=== PATIENT | male | born 1975 | race Caucasian/White ===

== ENCOUNTER 2024-12-01 17:07 | Emergency (ER) | payer OTHER ==
[~2024-12-01] VITALS: Ht 182.9 cm; Wt 131.8 kg
[2024-12-01 17:25] VITALS: TEMP 98.9
[2024-12-01 17:30] VITALS: BP 122/79; PULSE 105; RESP 18; O2SAT 97
[2024-12-01] MEDS: BACITRACIN 28 GM OINTMENT TP ONE (17:44)
[2024-12-01] MEDS: PROPARACAINE HCL 0.5% 15 ML OPHTHALMIC SOLUTION OS ONE (17:44)
[2024-12-01] MEDS: FLUORESCEIN SODIUM 1 MG STRIP OS ONE (17:45)
[2024-12-01] MEDS: AMOX TR/POT CLAV 875 MG/125 MG TABLET PO ONE (17:45)
[2024-12-01] MEDS: ACETAMINOPHEN 500 MG TABLET PO ONE (17:45)
[2024-12-01] MEDS: PERTUSS(ACELL),DIPH,TET/PF 0.5 ML SYRINGE [ADULT] IM. ONE (17:45)
[2024-12-01] MEDS ORDERED: IBUP-1492 PO (19:43)
[2024-12-01] MEDS ORDERED: ACET-3385 PO (19:43)
[2024-12-01] MEDS ORDERED: OFLO5DRO49 OS (19:43)
[2024-12-01] MEDS: OFLOXACIN 0.3% 5 ML OPHTHALMIC SOLUTION OS ONE (19:52)
== END 2024-12-01 19:55 | disposition home or self-care (01) ==
LOC: EMS 17:07
DX: S02.2XXA Fracture of nasal bones, initial encounter for closed fracture (principal); S05.02XA Injury of conjunctiva and corneal abrasion without foreign body, left eye, initial encounter; I10 Essential (primary) hypertension; E78.00 Pure hypercholesterolemia, unspecified; F32.A Depression, unspecified; F12.90 Cannabis use, unspecified, uncomplicated; F15.90 Other stimulant use, unspecified, uncomplicated; F10.90 Alcohol use, unspecified, uncomplicated; Y90.9 Presence of alcohol in blood, level not specified; F17.210 Nicotine dependence, cigarettes, uncomplicated; V86.96XA Unspecified occupant of dirt bike or motor/cross bike injured in nontraffic accident, initial encounter; Y93.89 Activity, other specified; Y92.89 Other specified places as the place of occurrence of the external cause; Y99.8 Other external cause status
CPT/HCPCS: 70450; 70486; 72125; 90471; 90715; 99285